=== PATIENT | female | born 1965 | race Caucasian/White ===

== ENCOUNTER 2018-07-10 07:29 | Outpatient (CLI) | payer OTHER ==
--- NOTE | 2018-07-10 09:54 | CT ---
CT ABDOMEN AND PELVIS WITH AND WITHOUT IV CONTRAST: HISTORY: Carcinoid tumor of colon. Initial staging. COMPARISON: 03/03/2012. FINDINGS: The lung bases are clear. Gallbladder is surgically absent. No liver masses are visible. The splee n measures up to 11.9 cm. Cyst of the left kidney is stable. No enlarged lymph nodes are apparent w ithin the retroperitoneum. Scattered nonenlarged, nonspecific lymph nodes are present throughout the mesentery and retroperitoneum. No free air or free fluid. Appendix not visualized and may be surgically absent. Scattered divertic michael arise from the colon without adjacent inflammation. The colon is incompletely distended. No foc al masses are apparent on CT. IMPRESSION: 1. Diverticulosis. No evidence of diverticulitis. 2. No evidence of metastatic disease of the abdomen/pelvis. 3. Status post cholecystectomy. 4. Chronic-type findings are stable. POS: HARIS
[2018-07-10] MEDS ORDERED: Iopamidol 370 76% 100 ML VIAL ONE (15:02)
== END 2018-07-10 07:30 | disposition home or self-care (01) ==
LOC: BICCT 07:29
PROVIDERS: ATTEND Internal Medicine Gastroenterology
DX: C7A.026 Malignant carcinoid tumor of the rectum (principal); K57.90 Diverticulosis of intestine, part unspecified, without perforation or abscess without bleeding; Z90.49 Acquired absence of other specified parts of digestive tract
CPT/HCPCS: 74178

== ENCOUNTER 2020-06-09 18:37 | Emergency (ER) | payer OTHER ==
[2020-06-09] MEDS ORDERED: Diltiazem 125 MG/25 ML ONE (19:03)
[2020-06-09 19:06] LABS: #Eosinphils 0.1 thou/uL (0.0-0.7); #Lymphocytes 2.4 thou/uL (1.20-3.40); #Monocytes 0.4 thou/uL (0.11-0.59); #Neutrophils 2.8 thou/uL (1.40-6.50); %Basophils 0.5 % (0.0-1.0); %Eosinophils 2.1 % (0.0-10.0); %Monocytes 7.1 % (0.0-10.0); %Neutrophils 48.3 % (42.0-75.0); Mean Corpuscular HGB CONC 34.3 g/dL (32.0-36.0); Mean Corpuscular Hemoglobin 30.4 pg (27.0-31.0); Mean Corpuscular Volume 88.7 fL (78.0-98.0); Mean Platelet Volume 8.3 fL (7.4-10.4); Platelet Count 139 thou/uL (130-400); RBC Distribution Width 11.5 % (11.5-14.5); Red Blood Cell (RBC) Count 4.93 mill/uL (4.20-5.40); White Blood Cell (WBC) Count 5.8 thou/uL (4.8-10.8)
[2020-06-09 19:26] LABS: ALT (SGPT) 33 U/L (8-55); AST (SGOT) 25 U/L (5-34); Albumin 4.5 g/dL (3.5-5.0); Alkaline Phosphatase 99 U/L (40-110); Anion Gap 15 mmol/L (10-20); BUN (Urea Nitrogen) 14 mg/dL (9.8-20.1); Bilirubin, Total 0.9 mg/dL (0.2-1.2); CK (CPK) 43 U/L (29-168); Calc. Creatinine Clearance 0 mL/min (70-130); Calcium 9.6 mg/dL (7.8-10.44); Carbon Dioxide 26 mmol/L (22-29); Chloride 103 mmol/L (98-107); Estimated GFR-MDRD 60; Glucose 88 mg/dL (70-105); Potassium 3.5 mmol/L (3.5-5.1); Protein, Total 7.5 g/dL (6.0-8.3); Sodium 140 mmol/L (136-145)
--- NOTE | 2020-06-09 19:51 | RAD ---
Exam: Chest one view HISTORY:Palpitation. Comparison: None FINDINGS: Cardiac silhouette: Normal Aorta: Unremarkable Pulmonary vessels: Normal Costophrenic angles: Clear LUNGS: No masses or consolidation. Pneumothorax: None Osseous abnormalities: None IMPRESSION: No acute cardiopulmonary process.
== END 2020-06-09 21:40 | disposition home or self-care (01) ==
LOC: ERS 18:37
DX: I48.91 Unspecified atrial fibrillation (principal)
CPT/HCPCS: 36415; 71045; 80053; 82550; 83735; 84443; 84484; 85025; 92960; 93005; 96374

== ENCOUNTER 2021-02-23 14:46 | Outpatient (CLI) | payer OTHER | END 2021-02-23 14:47 | disposition home or self-care (01) | LOC: BICMAMMO 14:46 | PROVIDERS: ATTEND Family Medicine | DX: Z12.31 Encounter for screening mammogram for malignant neoplasm of breast (principal); M85.851 Other specified disorders of bone density and structure, right thigh; M85.852 Other specified disorders of bone density and structure, left thigh; M81.0 Age-related osteoporosis without current pathological fracture | CPT/HCPCS: 77063; 77067; 77080 ==

== ENCOUNTER 2022-01-22 07:32 | Outpatient (CLI) | payer OTHER ==
[2022-01-22] MEDS ORDERED: ISOVUE-370 76% 1 ML ONE (11:48)
== END 2022-01-22 07:33 | disposition home or self-care (01) ==
LOC: BICCT 07:32
PROVIDERS: ATTEND Internal Medicine Gastroenterology
DX: C7A.026 Malignant carcinoid tumor of the rectum (principal)
CPT/HCPCS: 74177

== ENCOUNTER 2023-04-05 14:56 | Outpatient (CLI) | payer OTHER | END 2023-04-05 14:57 | disposition home or self-care (01) | LOC: BICMAMMO 14:56 | PROVIDERS: ATTEND Family Medicine | DX: M81.0 Age-related osteoporosis without current pathological fracture (principal); Z78.0 Asymptomatic menopausal state | CPT/HCPCS: 77080 ==

== ENCOUNTER 2023-04-07 15:53 | Outpatient (CLI) | payer OTHER ==
[2023-04-07 16:55] LABS: #Eosinphils 0.1 10x3/uL (0.0-0.5); #Monocytes 0.4 10x3/uL (0.0-1.1); #Neutrophils 2.9 10x3/uL (1.5-8.4); %Basophils 0.5 % (0.0-2.0); %Eosinophils 2.1 % (0.0-6.0); %Lymphocytes 40.5 % (18.0-47.0); %Monocytes 6.8 % (0.0-10.0); %Neutrophils 50.1 % (40.0-75.0); Hemoglobin 13.5 g/dL (12.0-15.5); Mean Corpuscular HGB CONC 32.5 g/dL (32.0-36.0); Mean Corpuscular Hemoglobin 29.2 pg (27.0-33.0); Mean Corpuscular Volume 89.8 fl (81.6-98.3); Mean Platelet Volume 10.5 fl (7.4-10.4); Platelet Count 150 10x3/uL (150-450); RBC Distribution Width 12.4 % (11.5-14.5); Red Blood Cell (RBC) Count 4.62 10x6/uL (3.90-5.03); White Blood Cell (WBC) Count 5.7 10x3/uL (3.5-10.5)
[2023-04-07 17:27] LABS: Anion Gap 13 mmol/L (10-20); BUN (Urea Nitrogen) 22 mg/dL (9.8-20.1); Calc. Creatinine Clearance 0 mL/min (70-130); Calcium 9.4 mg/dL (7.8-10.44); Carbon Dioxide 25 mmol/L (22-29); Chloride 104 mmol/L (98-107); Estimated GFR 63; Glucose 89 mg/dL (70-105); Potassium 4.2 mmol/L (3.5-5.1); Sodium 138 mmol/L (136-145)
== END 2023-04-07 15:54 | disposition home or self-care (01) ==
LOC: LABBT 15:53
PROVIDERS: ATTEND Surgery
DX: Z01.818 Encounter for other preprocedural examination (principal); K40.90 Unilateral inguinal hernia, without obstruction or gangrene, not specified as recurrent; K42.9 Umbilical hernia without obstruction or gangrene
CPT/HCPCS: 80048; 85025; 93005; 93010

== ENCOUNTER 2023-04-12 08:17 | Day surgery (SDC) | payer OTHER ==
[2023-04-12] MEDS ORDERED: EPINEPHrine 1 MG/ML AMP ONE (10:18)
[2023-04-12] MEDS ORDERED: Bupivacaine 0.25% HCL 30 ML VIAL ONE (10:18)
[2023-04-12] MEDS ORDERED: Midazolam HCl 2 mg/2 ml Vial ONE (11:13)
[2023-04-12] MEDS ORDERED: fentaNYL PF 100 MCG/2 ML SYRINGE ONE (11:13)
[2023-04-12] MEDS ORDERED: HYDROmorphone 0.5 MG/0.5 ML SYRINGE ONE (11:13)
[2023-04-12] MEDS ORDERED: SUGAMMADEX SODIUM 200 MG/2 ML VIAL ONE (11:24)
[2023-04-12] MEDS ORDERED: Sodium Chloride 0.9% 100 ML ONE (11:28)
[2023-04-12] MEDS ORDERED: CEFAZOLIN 2 GM VIAL ONE (11:28)
[2023-04-12] MEDS ORDERED: PROPOFOL 200 MG/20 ML VIAL ONE (11:33)
[2023-04-12] MEDS ORDERED: Rocuronium Bromide 10 MG/ML (10ML VIAL) ONE (11:33)
[2023-04-12] MEDS ORDERED: Ondansetron PF 4 MG/2 ML Vial ONE (11:33)
[2023-04-12] MEDS ORDERED: Lidocaine 1% PF 5 ML VIAL ONE (11:33)
[2023-04-12] MEDS ORDERED: Morphine 4 MG/ML VIAL ONE ×2 (13:37→14:12)
[2023-04-12] MEDS ORDERED: diphenhydrAMINE 50 MG/ML VIAL ONE (14:25)
[2023-04-12] MEDS ORDERED: Ketorolac Tromethamine 30 MG/ML VIAL ONE (14:38)
== END 2023-04-12 15:03 | disposition home or self-care (01) ==
LOC: SDC 08:17
PROVIDERS: ATTEND Surgery
PROC: 0YU64JZ Supplement Left Inguinal Region with Synthetic Substitute, Percutaneous Endoscopic Approach (ICD-10-PCS; principal; 2023-04-12)
PROC: 0WUF4JZ Supplement Abdominal Wall with Synthetic Substitute, Percutaneous Endoscopic Approach (ICD-10-PCS; principal; 2023-04-12)
DX: K42.9 Umbilical hernia without obstruction or gangrene (principal); K40.90 Unilateral inguinal hernia, without obstruction or gangrene, not specified as recurrent; Z79.899 Other long term (current) drug therapy; G47.00 Insomnia, unspecified; E04.2 Nontoxic multinodular goiter; Z90.89 Acquired absence of other organs; Z87.59 Personal history of other complications of pregnancy, childbirth and the puerperium; Z98.51 Tubal ligation status; Z88.5 Allergy status to narcotic agent; Z88.2 Allergy status to sulfonamides
CPT/HCPCS: C1713; C1889; J0171; J1170; J1200; J1885; J2250; J2270; J2405; J2704; J3490; S0020

== ENCOUNTER 2025-04-25 08:57 | Outpatient (CLI) | payer OTHER | END 2025-04-25 08:58 | disposition home or self-care (01) | LOC: BICMAMMO 08:57 | PROVIDERS: ATTEND Nurse Practitioner Family | DX: Z78.0 Asymptomatic menopausal state (principal); M81.0 Age-related osteoporosis without current pathological fracture | CPT/HCPCS: 77080 ==